=== PATIENT | female | born 1990 | race African-American/Black ===

== ENCOUNTER 2021-04-30 08:00 | Inpatient (IN) | payer OTHER ==
[2021-04-30] MEDS ORDERED: CITRIC ACID/SODIUM CITRATE 30 ML UNIT-DOSE CUP PO ONE ×2 (17:30→22:34)
[2021-04-30] MEDS: ELECTROLYTE-148 SOLN 500 ML IV SCH ×2 (18:00→18:50)
[2021-04-30 18:13] VITALS: BMI 40.1
[2021-04-30] MEDS ORDERED: morphine SULFATE/PF 1 MG/2 ML (2cc Syringe - QUVA) ONE (20:09)
[2021-04-30] MEDS ORDERED: ONDANSETRON 4 MG/2 ML VIAL ONE (20:14)
[2021-04-30] MEDS ORDERED: ceFAZolin SODIUM 1 GM VIAL ONE (20:14)
[2021-04-30] MEDS ORDERED: PHENYLEPHRINE HCL 10 MG/1 ML SINGLE DOSE VIAL ONE (20:29)
[2021-04-30] MEDS ORDERED: OXYTOCIN 10 UNITS/ML VIAL ONE (20:49)
[2021-04-30 21:52] LABS: CORD BASE EXCESS -3.9 mmol/L (0-2); CORD HCO3 25.1 mmHg (20-29); CORD PCO2 61.5 mmHg (30-78); CORD pH 7.228 (7.14-7.44)
[2021-04-30 21:53] LABS: CORD HCO3 23.6 mmHg (20-29); CORD PCO2 47.4 mmHg (30-78); CORD pH 7.315 (7.14-7.44)
[2021-04-30] MEDS: OXYTOCIN 20 UNITS in 0.9% NS 20 UNIT/1,000 ML INFUS.BAG IV SCH (22:00)
[2021-04-30] MEDS ORDERED: ONDANSETRON 4 MG/2 ML VIAL IVPUSH PRN (22:05)
[2021-04-30] MEDS ORDERED: ACETAMINOPHEN 325 MG TABLET (FP) PO PRN (22:34)
[2021-04-30] MEDS ORDERED: OXYTOCIN 20 UNITS in 0.9% NS 20 UNIT/1,000 ML INFUS.BAG IV ONE (22:34)
[2021-04-30] MEDS ORDERED: METHYLERGONOVINE MALEATE 0.2 MG/1 ML AMP IM PRN (22:34)
[2021-04-30] MEDS ORDERED: ELECTROLYTE-148 SOLN 1,000 ML IV SCH (22:45)
[2021-05-01] MEDS ORDERED: ceFAZolin SODIUM 1 GM VIAL ONE ×3 (01:30→17:28)
[2021-05-01] MEDS ORDERED: DEXTROSE 5%-WATER - 50 ML IVPB ONE ×3 (01:30→17:28)
[2021-05-01] MEDS: CEFAZOLIN 1 GM in DEXTROSE 5%-WATER - 1 GM/50 ML IVPB IVPB SCH ×3 (01:30→17:37)
[2021-05-01 07:20] LABS: BASO % 0.4 % (0-2.0); EOS % 0.8 % (0-4.5); HEMATOCRIT 35.1 % (32.4-45.2); HEMOGLOBIN 12.1 GM/dL (10.7-15.3); LYMPH % 21.2 % (8-40); MCH 31.5 pg (25.7-33.7); MCHC 34.6 g/dl (32.0-36.0); MEAN CELL VOLUME 90.9 fl (80-96); MEAN PLT VOLUME 8.3 fl (7.5-11.1); MONO % 5.9 % (3.8-10.2); NEUT % 71.7 % (42.8-82.8); PLATELET COUNT 167 10^3/uL (134-434); RBC 3.86 M/mm3 (3.60-5.2); RDW 14.1 % (11.6-15.6); WHITE BLOOD COUNT 9.6 K/mm3 (4.0-10.0)
[2021-05-01] MEDS: ENOXAPARIN NA (PORCINE) 40 MG/0.4 ML DISP.SYRIN SQ SCH (09:50)
[2021-05-01] MEDS ORDERED: oxyCODONE HCL 5 MG TABLET PO PRN (10:35)
[2021-05-01] MEDS: SIMETHICONE 80 MG TAB.CHEW (FP) PO PRN ×2 (15:16→21:38)
[2021-05-01] MEDS: IBUPROFEN 600 MG TABLET (FP) PO PRN ×2 (15:16→21:36)
[2021-05-01] MEDS: ELECTROLYTE-148 SOLN 500 ML IV SCH ×2 (17:36→18:58)
[2021-05-01] MEDS ORDERED: BISACODYL 10 MG SUPP.RECT RC PRN (22:35)
[2021-05-02] MEDS: oxyCODONE HCL 5 MG TABLET PO PRN (07:27)
[2021-05-02] MEDS: SIMETHICONE 80 MG TAB.CHEW (FP) PO PRN ×3 (07:28→22:05)
[2021-05-02] MEDS: ENOXAPARIN NA (PORCINE) 40 MG/0.4 ML DISP.SYRIN SQ SCH (09:58)
[2021-05-02] MEDS: IBUPROFEN 600 MG TABLET (FP) PO PRN ×2 (10:09→14:53)
[2021-05-02] MEDS: OXYTOCIN 20 UNITS in 0.9% NS 20 UNIT/1,000 ML INFUS.BAG IV SCH (19:57)
[2021-05-03] MEDS: oxyCODONE HCL 5 MG TABLET PO PRN ×2 (01:42→06:30)
[2021-05-03] MEDS: SIMETHICONE 80 MG TAB.CHEW (FP) PO PRN ×5 (01:42→22:50)
[2021-05-03] MEDS: ENOXAPARIN NA (PORCINE) 40 MG/0.4 ML DISP.SYRIN SQ SCH (09:54)
[2021-05-03] MEDS: IBUPROFEN 600 MG TABLET (FP) PO PRN ×3 (10:27→22:50)
[2021-05-03 10:32] LABS: BASO % 0.8 % (0-2.0); EOS % 1.6 % (0-4.5); HEMATOCRIT 33.1 % (32.4-45.2); HEMOGLOBIN 11.6 GM/dL (10.7-15.3); LYMPH % 22.7 % (8-40); MCH 31.7 pg (25.7-33.7); MEAN CELL VOLUME 90.5 fl (80-96); MEAN PLT VOLUME 7.9 fl (7.5-11.1); MONO % 7.3 % (3.8-10.2); NEUT % 67.6 % (42.8-82.8); PLATELET COUNT 200 10^3/uL (134-434); RBC 3.66 M/mm3 (3.60-5.2); RDW 14.3 % (11.6-15.6); WHITE BLOOD COUNT 9.1 K/mm3 (4.0-10.0)
[2021-05-04] MEDS: IBUPROFEN 600 MG TABLET (FP) PO PRN (09:31)
[2021-05-04] MEDS: SIMETHICONE 80 MG TAB.CHEW (FP) PO PRN (09:32)
[2021-05-04] MEDS: ENOXAPARIN NA (PORCINE) 40 MG/0.4 ML DISP.SYRIN SQ SCH (09:32)
[2021-05-04 11:11] VITALS: BP 123/80; PULSE 80; TEMP 98.3
== END 2021-05-04 10:40 | disposition home or self-care (01) | DRG 540 ==
LOC: JDEL 08:00 → EDSTATUS 08:00 → JDEL 09:05 → JLDR 16:30 → J3W 23:55
PROVIDERS: ADMIT Obstetrics & Gynecology; ATTEND Obstetrics & Gynecology
PROC: 10D00Z1 Extraction of Products of Conception, Low, Open Approach (ICD-10-PCS; principal; 2021-04-30)
DX: O34.211 Maternal care for low transverse scar from previous cesarean delivery (principal); N85.8 Other specified noninflammatory disorders of uterus; Z3A.39 39 weeks gestation of pregnancy; Z37.0 Single live birth
CPT/HCPCS: 36415; 36600; 59025; 80048; 82803; 85025; 85610; 85730; 86780; 86850; 86900; 86901; 87086; 87186; 88304-TC; 88307-TC; C9803-CS; U0003; U0005

== ENCOUNTER 2023-03-09 11:17 | Emergency (ER) | payer OTHER ==
[2023-03-09 11:24] VITALS: BP 115/86; TEMP 98.5; BMI 33.2
[2023-03-09] MEDS ORDERED: SODIUM CHLORIDE 0.9% 500 ML INFUS.BAG IV ONE (11:43)
[2023-03-09 12:23] LABS: BASO % 0.5 % (0-2.0); EOS % 3.5 % (0-4.5); HEMATOCRIT 41.3 % (32.4-45.2); HEMOGLOBIN 13.7 GM/dL (10.7-15.3); LYMPH % 33.3 % (8-40); MCH 29.1 pg (25.7-33.7); MCHC 33.1 g/dl (32.0-36.0); MEAN CELL VOLUME 88.1 fl (80-96); MEAN PLT VOLUME 9.3 fl (7.5-11.1); MONO % 10.1 % (3.8-10.2); NEUT % 52.6 % (42.8-82.8); PLATELET COUNT 214 10^3/uL (134-434); RBC 4.69 M/mm3 (3.60-5.2); RDW 13.8 % (11.6-15.6); WHITE BLOOD COUNT 4.4 K/mm3 (4.0-10.0)
[2023-03-09 12:42] LABS: POTASSIUM 4.9 mmol/L (3.5-5.1)
[2023-03-09 12:44] LABS: ALBUMIN 4.2 g/dl (3.4-5.0); BLOOD UREA NITROGEN 7.9 mg/dL (7-18); CALCIUM 8.7 mg/dL (8.5-10.1)
[2023-03-09 12:47] LABS: CREATININE 0.7 mg/dL (0.55-1.3)
[2023-03-09 12:49] LABS: BILIRUBIN,TOTAL 0.4 mg/dL (0.2-1); TOT PROT 8.5 g/dl (6.4-8.2)
[2023-03-09 14:01] VITALS: PULSE 89; RESP 19
== END 2023-03-09 14:02 | disposition home or self-care (01) ==
LOC: JER 11:17
DX: R50.9 Fever, unspecified (principal); R53.83 Other fatigue; J10.1 Influenza due to other identified influenza virus with other respiratory manifestations; Z20.822 Contact with and (suspected) exposure to COVID-19
CPT/HCPCS: 0241U-QW; 36415; 80053; 84703; 85025; 93005; 93010; 99284-25